=== PATIENT | female | born 1965 | race American Indian/Alaskan Native ===

== ENCOUNTER 2021-02-22 17:16 | Inpatient (IN) | payer OTHER ==
--- NOTE | 2021-02-22 19:48 | Event Note ---
ED Screening Note ED Screening Note: Patient sent by Dr. Anderson, PCP for possible admission Patient has been treated by dermatology for hydronidus suppurativa She has had a wound to the left axilla for the last 2 months She states it has been open and draining purulent material She reports that she has been on Augmentin 3 times but nothing to cover MRSA Dr. Anderson sent patient for IV antibiotics and CT and evaluation for admission This initial assessment/diagnostic orders/clinical plan/treatment(s) is/are subject to change based on patients health status, clinical progression and re- assessment by fellow clinical providers in the ED. Further treatment and workup at subsequent clinical providers discretion. Patient/guardian urged not to elope from the ED as their condition may be serious if not clinically assessed and managed. Initial orders include: Labs, CT
[2021-02-22 20:28] LABS: Basophils # (Auto) 0.1 K/mm3 (0.0-0.1); Basophils % (Auto) 0.8 % (0.0-1.8); Eosinophils # (Auto) 0.7 K/mm3 (0.0-0.4); Eosinophils % (Auto) 5.6 % (0.0-4.3); Hematocrit 35.8 % (30.3-42.9); Hemoglobin 12.1 gm/dl (10.1-14.3); Lymphocytes # (Auto) 3.2 K/mm3 (1.2-5.4); Lymphocytes % (Auto) 25.8 % (13.4-35.0); Mean Corpuscular HGB Conc 34 % (30-34); Mean Corpuscular Volume 89 fl (79-97); Monocytes % (Auto) 8.5 % (0.0-7.3); Platelet Count 364 K/mm3 (140-440); Red Blood Count 4.05 M/mm3 (3.65-5.03)
[2021-02-22 20:39] LABS: Alanine Aminotransferase 21 units/L (7-56); Blood Urea Nitrogen 16 mg/dL (7-17); Calcium 9.5 mg/dL (8.4-10.2); Hemolysis Index 5
[2021-02-22 20:52] LABS: BUN/Creatinine Ratio 27
[2021-02-23] MEDS ORDERED: VANCOMYCIN/NS 1 GM/250 ML 1 GM/250 ML BAG IV ONE (02:29)
--- NOTE | 2021-02-23 02:33 | Emergency Department Report ---
ED General Adult HPI - General Chief complaint: Wound/Laceration Stated complaint: HS/RA LT WOUND ARM Time Seen by Provider: 02/22/21 19:46 Source: patient Mode of arrival: Ambulatory Limitations: No Limitations - History of Present Illness Initial comments: Patient is 55 years old female with history of hypertension. Patient presented to the ER for admission for IV antibiotic and ID consult. Patient has history of left suppurative hidradenitis for approximately 2months with no improvement. Patient stated that she took several rounds of antibiotic. Patient coming with discharge from the left axilla. Patient denied any fever or chills. No nausea or vomiting. - Related Data Allergies Allergy/AdvReac Type Severity Reaction Status Date / Time adhesive tape Allergy Unknown Verified 02/22/21 19:40 Sulfa (Sulfonamide AdvReac Unknown Verified 02/22/21 19:40 Antibiotics) ED Review of Systems ROS: Stated complaint: HS/RA LT WOUND ARM Other details as noted in HPI Comment: All other systems reviewed and negative Constitutional: denies: chills, fever Respiratory: denies: cough, shortness of breath, SOB with exertion Cardiovascular: denies: chest pain Gastrointestinal: denies: abdominal pain, nausea Skin: lesions ED Past Medical Hx - Past Medical History Previous Medical History?: Yes Hx Hypertension: Yes Hx Diabetes: Yes (PRE) ED Physical Exam - General Limitations: No Limitations General appearance: alert, in no apparent distress - Head Head exam: Present: atraumatic, normocephalic, normal inspection - Eye Eye exam: Present: normal appearance - ENT ENT exam: Present: normal exam, normal orophraynx, mucous membranes moist - Neck Neck exam: Present: normal inspection - Respiratory Respiratory exam: Present: normal lung sounds bilaterally - Cardiovascular Cardiovascular Exam: Present: regular rate, normal rhythm, normal heart sounds - GI/Abdominal GI/Abdominal exam: Present: soft. Absent: distended, tenderness, guarding, rebound - Back Exam Back exam: Present: normal inspection. Absent: CVA tenderness (R), CVA tenderness (L) - Neurological Exam Neurological exam: Present: alert, oriented X3, CN II-XII intact - Skin Skin exam: Present: other (Left axilla with multiple opening of greenish pussy discharge with surrounding cellulitis.) ED Course Vital Signs 02/22/21 19:34 Temperature 98.4 F Pulse Rate 85 Respiratory 18 Rate Blood Pressure 169/83 [Left] O2 Sat by Pulse 98 Oximetry ED Medical Decision Making - Lab Data Result diagrams: 02/22/21 20:00 02/22/21 20:00 - Radiology Data Radiology results: report reviewed - Medical Decision Making Patient is 55 years old female with history of hypertension. Patient presented to the ER for admission for IV antibiotic and ID consult. Patient has history of left suppurative hidradenitis for approximately 2months with no improvement. Patient stated that she took several rounds of antibiotic. Patient coming with discharge from the left axilla. Patient denied any fever or chills. No nausea or vomiting. Labs reviewed and showed leukocytosis. CT left upper extremity showed no evidence of abscess. Patient started on vancomycin 1g. I discussed the patient with , he agreed to admit the patient to medical service for further management. Critical care attestation.: If time is entered above; I have spent that time in minutes in the direct care of this critically ill patient, excluding procedure time. ED Disposition Clinical Impression: Abscess of axilla, left Disposition: - OP ADMIT IP TO THIS HOSP Is pt being admited?: Yes Condition: Stable Referrals: PRIMARY CARE, [Primary Care Provider] - 3-5 Days
--- NOTE | 2021-02-23 03:46 | Cat Scan Report ---
CT upper extrem LT w con INDICATION: left axillary infection. TECHNIQUE: All CT scans at this location are performed using the following dose modulation technique: Automated exposure control. CONTRAST: Omnipaque 300, 75 cc COMPARISON: None available. FINDINGS: Soft tissue thickening involving the skin and adjacent soft tissues at the axilla. Mild sof t tissue gas is noted. No mass or fluid collection. The underlying bones are unremarkable. Evaluation of the lungs demonstrate mosaic attenuation. IMPRESSION: 1. Skin/soft tissue infection at the axilla. Negative for mass or fluid collection. 2. Mosaic attenuation of the lungs is most commonly seen in the setting of air trapping. Signer Name: Salomon Sloan MD Signed: 02/23/2021 3:41 AM Workstation Name: [id number]
[2021-02-23] MEDS ORDERED: MAGNESIUM HYDROXIDE (MOM) ORAL LIQD UDC PO PRN (04:10)
[2021-02-23] MEDS ORDERED: ONDANSETRON 4 MG/2 ML INJ IV PRN (04:10)
[2021-02-23] MEDS ORDERED: ACETAMINOPHEN 325 MG TAB PO PRN (04:10)
--- NOTE | 2021-02-23 04:21 | History and Physical Report ---
History of Present Illness Date of examination: 02/23/21 Date of admission: 02/23/2021 Chief complaint: Left Axilla infection History of present illness: 55-year-old -[place] female with known history of hypertension and rheumatoid arthritis presents to the emergency room today with a left axillary abscess. She has followed up with a primary care physician who has encouraged her to report to the hospital for IV antibiotics and possible infectious disease evaluation. She has known history of left axillary hidradenitis for about 2 months. She has been having several rounds of oral antibiotics without any significant improvement. Patient denies any fever or chills, no chest pain or shortness of breath, no nausea vomiting, no abdominal pain, no headache or dizziness. Patient denies any sick contacts or recent travel. Denies any contact with anyone with COVID-19. Work-up in the emergency room today reveals leukocytosis of 12.3 and hypokalemia of 3.0 on the labs. Patient is being admitted with left axilla abscess with failed outpatient oral a ntibiotics. Past History Past Medical History: hypertension Past Surgical History: No surgical history Social history: no significant social history Family history: no significant family history Medications and Allergies Allergies Allergy/AdvReac Type Severity Reaction Status Date / Time adhesive tape Allergy Unknown Verified 02/22/21 19:40 Sulfa (Sulfonamide AdvReac Unknown Verified 02/22/21 19:40 Antibiotics) Active Meds: Active Medications Acetaminophen (Acetaminophen 325 Mg Tab) 650 mg PO Q4H PRN PRN Reason: Pain MILD(1-3)/Fever >100.5/ROMAN Heparin Sodium (Porcine) (Heparin 5,000 Unit/1 Ml Vial) 5,000 unit SUB-Q Q8HR BRODY Sodium Chloride (Nacl 0.9% 1000 Ml) 1,000 mls @ 125 mls/hr IV DIRECT BRODY Magnesium Hydroxide (Magnesium Hydroxide (Mom) Oral Liqd Udc) 30 ml PO Q4H PRN PRN Reason: Constipation Morphine Sulfate (Morphine 2 Mg/1 Ml Inj) 2 mg IV Q4H PRN PRN Reason: Pain, Moderate (4-6) Ondansetron HCl (Ondansetron 4 Mg/2 Ml Inj) 4 mg IV Q8H PRN PRN Reason: Nausea And Vomiting Sodium Chloride (Sodium Chloride 0.9% 10 Ml Flush Syringe) 10 ml IV BID BRODY Sodium Chloride (Sodium Chloride 0.9% 10 Ml Flush Syringe) 10 ml IV PRN PRN PRN Reason: LINE FLUSH Review of Systems Constitutional: no fever, no chills Ears, nose, mouth and throat: no nasal congestion, no sore throat Cardiovascular: no chest pain, no palpitations Respiratory: no cough, no shortness of breath Gastrointestinal: no abdominal pain, no nausea, no vomiting, no diarrhea Genitourinary Female: no flank pain, no dysuria, no hematuria Musculoskeletal: no neck pain, no low back pain Integumentary: no rash, no pruritis Neurological: no headaches, no confusion Psychiatric: no anxiety, no depression Endocrine: no polyphagia, no polydipsia, no polyuria, no nocturia Exam - Constitutional Vitals: Temp Pulse Resp BP Pulse Ox 98.4 F 85 18 169/83 98 02/22/21 19:34 02/22/21 19:34 02/22/21 19:34 02/22/21 19:34 02/22/21 19:34 General appearance: Present: no acute distress, well-nourished - EENT Eyes: Present: PERRL, EOM intact. Absent: scleral icterus ENT: hearing intact, clear oral mucosa, dentition normal - Neck Neck: Present: supple, normal ROM - Respiratory Respiratory effort: normal Respiratory: bilateral: CTA - Cardiovascular Rhythm: regular Heart Sounds: Present: S1 & S2. Absent: gallop, systolic murmur, diastolic murmur, rub, click - Extremities Extremities: no ischemia, pulses intact, pulses symmetrical, No edema, normal temperature, normal color, Full ROM Peripheral Pulses: within normal limits - Abdominal General gastrointestinal: Present: soft, non-tender, non-distended, normal bowel sounds. Absent: mass - Integumentary Integumentary: Present: clear, warm, dry. Absent: rash - Musculoskeletal Musculoskeletal: strength equal bilaterally - Psychiatric Psychiatric: appropriate mood/affect, intact judgment & insight, memory intact, cooperative - Neurologic Neurologic: CNII-XII intact, no focal deficits, moves all extremities - Additional findings Additional findings: Skin: Left axilla with multiple openings of yellow to greenish discharge with surrounding cellulitis. Quite tender to touch. Small open wound in the right axilla with no discharge. No surrounding cellulitis. Tender to touch. Results - Labs CBC & Chem 7: 02/22/21 20:00 02/22/21 20:00 Labs: Abnormal lab results 02/22/21 02/22/21 Range/Units 20:00 20:00 WBC 12.3 H (4.5-11.0) K/mm3 [place] % (Auto) 8.5 H (0.0-7.3) % Eos % (Auto) 5.6 H (0.0-4.3) % Russell # (Auto) 1.0 H (0.0-0.8) K/mm3 Eos # (Auto) 0.7 H (0.0-0.4) K/mm3 Potassium 3.0 L (3.6-5.0) mmol/L Chloride 95.2 L (98-107) mmol/L Glucose 110 H (65-100) mg/dL Total Protein 8.4 H (6.3-8.2) g/dL Assessment and Plan - Patient Problems (1) Abscess of axilla, left Current Visit: Yes Status: Acute Plan to address problem: Patient has failed outpatient oral antibiotics. Will place on IV antibiotics. We will place consult to infectious disease and wound care for evaluation and recommendation. (2) DVT prophylaxis Current Visit: Yes Status: Acute Plan to address problem: Patient placed on subcutaneous heparin. (3) Full code status Current Visit: Yes Status: Acute Plan to address problem: Patient is full code.
[2021-02-23] MEDS ORDERED: POTASSIUM CHLORIDE ER 20 MEQ TAB PO ONE (05:02)
[2021-02-23] MEDS: HEPARIN 5,000 UNIT/1 ML VIAL SUB-Q SCH ×4 (06:18→21:27)
[2021-02-23] MEDS: SODIUM CHLORIDE 0.9% 1000 ML 1,000 ML IV SCH (06:19)
[2021-02-23] MEDS: MORPHINE 2 MG/1 ML INJ IV PRN ×3 (06:35→18:43)
--- NOTE | 2021-02-23 09:33 | Progress Note ---
Assessment and Plan Assessment and plan: Left axilla abscess Hypertension Rheumatoid arthritis Hypokalemia. 02/23/2021. ID and surgery consultation pending. Start Zosyn. Vancomycin given in the emergency room. Potassium was repleted. Follow-up BMP. History Interval history: No new issues overnight. Hospitalist Physical - Constitutional Vitals: Temp Pulse Resp BP Pulse Ox 98.3 F 57 L 17 148/77 99 02/23/21 03:15 02/23/21 05:00 02/23/21 06:35 02/23/21 05:00 02/23/21 05:00 General appearance: Present: no acute distress, well-nourished - EENT Eyes: Present: PERRL, EOM intact ENT: hearing intact, clear oral mucosa, dentition normal - Neck Neck: Present: supple, normal ROM - Respiratory Respiratory effort: normal Respiratory: bilateral: CTA - Cardiovascular Rhythm: regular Heart Sounds: Present: S1 & S2. Absent: gallop, rub - Extremities Extremities: no ischemia, No edema, Full ROM - Abdominal General gastrointestinal: soft, non-tender, non-distended, normal bowel sounds - Integumentary Integumentary: Present: clear, warm, dry - Neurologic Neurologic: CNII-XII intact, moves all extremities Results - Labs CBC & Chem 7: 02/22/21 20:00 02/22/21 20:00 Labs: Laboratory Last Values WBC 12.3 K/mm3 (4.5-11.0) H 02/22/21 20:00 RBC 4.05 M/mm3 (3.65-5.03) 02/22/21 20:00 Hgb 12.1 gm/dl (10.1-14.3) 02/22/21 20:00 Hct 35.8 % (30.3-42.9) 02/22/21 20:00 MCV 89 fl (79-97) 02/22/21 20:00 MCH 30 pg (28-32) 02/22/21 20:00 MCHC 34 % (30-34) 02/22/21 20:00 RDW 14.0 % (13.2-15.2) 02/22/21 20:00 Plt Count 364 K/mm3 (140-440) 02/22/21 20:00 Lymph % (Auto) 25.8 % (13.4-35.0) 02/22/21 20:00 [place] % (Auto) 8.5 % (0.0-7.3) H 02/22/21 20:00 Eos % (Auto) 5.6 % (0.0-4.3) H 02/22/21 20:00 Baso % (Auto) 0.8 % (0.0-1.8) 02/22/21 20:00 Lymph # (Auto) 3.2 K/mm3 (1.2-5.4) 02/22/21 20:00 [place] # (Auto) 1.0 K/mm3 (0.0-0.8) H 02/22/21 20:00 Eos # (Auto) 0.7 K/mm3 (0.0-0.4) H 02/22/21 20:00 Baso # (Auto) 0.1 K/mm3 (0.0-0.1) 02/22/21 20:00 Seg Neutrophils % 59.3 % (40.0-70.0) 02/22/21 20:00 Seg Neutrophils # 7.3 K/mm3 (1.8-7.7) 02/22/21 20:00 Sodium 139 mmol/L (137-145) 02/22/21 20:00 Potassium 3.0 mmol/L (3.6-5.0) L 02/22/21 20:00 Chloride 95.2 mmol/L (98-107) L 02/22/21 20:00 Carbon Dioxide 30 mmol/L (22-30) 02/22/21 20:00 Anion Gap 17 mmol/L 02/22/21 20:00 BUN 16 mg/dL (7-17) 02/22/21 20:00 Creatinine 0.6 mg/dL (0.6-1.2) 02/22/21 20:00 Estimated GFR > 60 ml/min 02/22/21 20:00 BUN/Creatinine Ratio 27 % 02/22/21 20:00 Glucose 110 mg/dL (65-100) H 02/22/21 20:00 Lactic Acid 1.30 mmol/L (0.7-2.0) 02/22/21 20:00 Calcium 9.5 mg/dL (8.4-10.2) 02/22/21 20:00 Total Bilirubin 0.20 mg/dL (0.1-1.2) 02/22/21 20:00 AST 18 units/L (5-40) 02/22/21 20:00 ALT 21 units/L (7-56) 02/22/21 20:00 Alkaline Phosphatase 64 units/L (35-129) 02/22/21 20:00 Total Protein 8.4 g/dL (6.3-8.2) H 02/22/21 20:00 Albumin 4.0 g/dL (3.9-5) 02/22/21 20:00 Albumin/Globulin Ratio 0.9 % 02/22/21 20:00 Microbiology: Microbiology 02/22/21 20:05 Peripheral/Venous Blood Culture - Preliminary Culture in Progress 02/22/21 20:00 Peripheral/Venous Blood Culture - Preliminary Culture in Progress Active Medications - Current Medications Current Medications: Generic Name Dose Route Start Last Admin Trade Name Freq PRN Reason Stop Dose Admin Acetaminophen 650 mg 02/23/21 04:10 Acetaminophen 325 Mg Tab PO Q4H PRN Pain MILD(1-3)/Fever >100.5/ROMAN Heparin Sodium (Porcine) 5,000 unit 02/23/21 06:00 02/23/21 06:18 Heparin 5,000 Unit/1 Ml Vial SUB-Q 5,000 unit Q8HR BRODY Administration Sodium Chloride 1,000 mls @ 125 mls/hr 02/23/21 04:15 02/23/21 06:19 Nacl 0.9% 1000 Ml IV 125 mls/hr DIRECT BRODY Administration Magnesium Hydroxide 30 ml 02/23/21 04:10 Magnesium Hydroxide (Mom) Oral Liqd Udc PO Q4H PRN Constipation Morphine Sulfate 2 mg 02/23/21 04:10 02/23/21 06:35 Morphine 2 Mg/1 Ml Inj IV 2 mg Q4H PRN Administration Pain, Moderate (4-6) Ondansetron HCl 4 mg 02/23/21 04:10 Ondansetron 4 Mg/2 Ml Inj IV Q8H PRN Nausea And Vomiting Sodium Chloride 10 ml 02/23/21 10:00 Sodium Chloride 0.9% 10 Ml Flush Syringe IV BID BRODY Sodium Chloride 10 ml 02/23/21 04:10 Sodium Chloride 0.9% 10 Ml Flush Syringe IV PRN PRN LINE FLUSH
[2021-02-23] MEDS ORDERED: PIPERACIL/TAZOBACTA 4.5/NS 100 4.5 GM/100 ML VIAL IV SCH (12:00)
--- NOTE | 2021-02-23 15:18 | Consultation ---
History of Present Illness - Reason for Consult Consult date: 02/23/21 left axilla wound infection fell outpatient abx Requesting physician: BOLA JEFFERSON - History of Present Illness 55-year-old female with history of hypertension, rheumatoid arthritis and hidradenitis suppurativa of bilateral axilla admitted on 02/22/2021 due to nonhealing left axilla wound. Patient has history of recurrent axilla cysts. However, she developed left axillary wound 3 months ago and has not improved. She still 7 and a biopsy was taken which was positive for pyoderma gangrenosum. She has received recent oral courses of antibiotic and without any improvement. She has history of right fractured ankle status post repair and complains of chronic right ankle edema. She denies any fever, chills, cough, nausea, vomiting. On arrival, temperature 98.4, HR 85, RR 18, O2 sat 98%, blood pressure 138/83. Initial WBC 12.3. Eosinophils 5.6%. CT shows soft tissue thickening and gas, no abscess or mass. Review of Systems: positive in bold print General: fever, chills, malaise Cutaneous: rash, pruritus Head: headaches or injury Eyes: changes in vision, eye pain, double vision Ears: ear pain, ear discharge, ringing or hearing loss Nose: nose bleeding, stuffiness Mouth & throat: bleeding gums, horseness, no dental problems, or swollen glands Neck: no pain, node enlargement/lumps, tyroid enlargement or tenderness Respiratory: SOB, cough, CABRERA, wheezing, sputum, hemoptysis, pleuritic chest pain Cardiovascular: chest pain, leg edema, cyanosis, CABRERA, orthopnea Musculoskeletal: Left axilla pain and wound Gastrointestinal: nausea, vomiting, hematemesis, diarrhea, constipation, melena, bright red blood in stools, fecal incontinence, jaundice Genitourinary/Reproductive: frequent urination, dysuria, hematuria, incontinence Neurogical: seizures, headaches, weakness, paresthesias, loss of speech or vision; memory loss, vertigo, tremors, numbness Psychiatric: stable mood; excessive anxiety, sadness or moodiness Past History Past Medical History: hypertension Past Surgical History: No surgical history Social history: no significant social history Family history: no significant family history Medications and Allergies Allergies Allergy/AdvReac Type Severity Reaction Status Date / Time adhesive tape Allergy Unknown Verified 02/22/21 19:40 Sulfa (Sulfonamide AdvReac Unknown Verified 02/22/21 19:40 Antibiotics) Home Medications Medication Instructions Recorded Confirmed Last Taken Type hydroCHLOROthiazide [HCTZ] 25 mg PO QDAY 02/23/21 02/23/21 02/22/21 10:00 History Active Meds: Active Medications Acetaminophen (Acetaminophen 325 Mg Tab) 650 mg PO Q4H PRN PRN Reason: Pain MILD(1-3)/Fever >100.5/ROMAN Heparin Sodium (Porcine) (Heparin 5,000 Unit/1 Ml Vial) 5,000 unit SUB-Q Q8HR BRODY Last Admin: 02/23/21 14:04 Dose: 5,000 unit Documented by: Sodium Chloride (Nacl 0.9% 1000 Ml) 1,000 mls @ 125 mls/hr IV DIRECT BRODY Last Admin: 02/23/21 06:19 Dose: 125 mls/hr Documented by: Piperacillin Sod/Tazobactam Sod (Zosyn/Ns 4.5gm/100ml) 4.5 gm in 100 mls @ 200 mls/hr IV Q8H BRODY; Protocol Last Admin: 02/23/21 14:04 Dose: 200 mls/hr Documented by: Magnesium Hydroxide (Magnesium Hydroxide (Mom) Oral Liqd Udc) 30 ml PO Q4H PRN PRN Reason: Constipation Morphine Sulfate (Morphine 2 Mg/1 Ml Inj) 2 mg IV Q4H PRN PRN Reason: Pain, Moderate (4-6) Last Admin: 02/23/21 13:58 Dose: 2 mg Documented by: Ondansetron HCl (Ondansetron 4 Mg/2 Ml Inj) 4 mg IV Q8H PRN PRN Reason: Nausea And Vomiting Sodium Chloride (Sodium Chloride 0.9% 10 Ml Flush Syringe) 10 ml IV BID BRODY Last Admin: 02/23/21 14:04 Dose: 10 ml Documented by: Sodium Chloride (Sodium Chloride 0.9% 10 Ml Flush Syringe) 10 ml IV PRN PRN PRN Reason: LINE FLUSH Physical Examination - Physical Exam Narrative exam: General appearance: Alert in NAD pleasant Eyes: anicteric sclerae, moist conjunctivae; no lid-lag; PERRLA HENT: Normocephalic, Atraumatic; normal external ears, nares open, oropharynx clear Neck: supple, tracheal midline, no JVD Lungs: CTA, with normal respiratory effort and no intercostal retractions CV: RRR no murmur Abdomen: Soft, non-tender; no masses or hepatosplenomegaly Extremities: no edema, no cyanosis Skin: +left axilla wound very tender no purulence Psych: no agitated Neuro: alert and oriented x 3. Moving all extermities - Constitutional Vitals: Vital Signs Temp Pulse Resp BP Pulse Ox 97.8 F 71 18 173/79 99 02/23/21 12:35 02/23/21 12:35 02/23/21 12:35 02/23/21 12:35 02/23/21 12:35 Temperature -Last 24 Hours Temperature 97.8 F Temperature 98.3 F Temperature 98.4 F Results - Labs CBC & Chem 7: 02/22/21 20:00 02/22/21 20:00 Labs: Abnormal lab results 02/22/21 02/22/21 Range/Units 20:00 20:00 WBC 12.3 H (4.5-11.0) K/mm3 [place] % (Auto) 8.5 H (0.0-7.3) % Eos % (Auto) 5.6 H (0.0-4.3) % [place] # (Auto) 1.0 H (0.0-0.8) K/mm3 Eos # (Auto) 0.7 H (0.0-0.4) K/mm3 Potassium 3.0 L (3.6-5.0) mmol/L Chloride 95.2 L (98-107) mmol/L Glucose 110 H (65-100) mg/dL Total Protein 8.4 H (6.3-8.2) g/dL Assessment and Plan Cultures: Blood culture no growth today Assessment: 55-year-old female with history of hypertension, rheumatoid arthritis and hidradenitis suppurativa of bilateral axilla admitted on 02/22/2021 due to non-healing left axilla wound for 3 months: #Leukocytosis, likely secondary to possible left axillary wound cellulitis #Left axillary pyoderma gangrenosum wound with cellulitis on top of hidradenitis suppurativa: Patient with biopsy-proven pyoderma gangrenosum of the left axilla done in December 2020. She sees dermatology. Pyoderma can occur in association with rheumatoid arthritis. Recommendations: -Wound care consult intended to optimize the environment for wound healing, maintain a moist wound environment is preferred. -Due to potential for pathergy (worsening pyoderma at the site of injury), unnecessary injury should be avoided, surgical procedure should be avoided -Stop zosyn -Start Minocycline 100 mg po bid for 3 weeks -Start prednisone 40 mg po daily 2-3 weeks then taper -Follow-up with dermatology to consider aggressive immunomodulatory therapy including infliximab -ID clinic f/u in 2 weeks -F/u wound and blood culture Will follow. Kelsie Griffin MD Infectious Diseases Settlement Technician [facility] ([facility] M [phone] O [phone]
[2021-02-23 16:07] LABS: Blood Urea Nitrogen 12 mg/dL (7-17); Calcium 8.6 mg/dL (8.4-10.2); Hemolysis Index 36
[2021-02-23 16:25] LABS: BUN/Creatinine Ratio 17
[2021-02-23] MEDS: predniSONE 20 MG TAB PO SCH (18:47)
[2021-02-23] MEDS: DOXYCYCLINE 100 MG CAP PO SCH ×2 (18:58→21:27)
[2021-02-24] MEDS: hydroCHLOROthiazide 25 MG TAB PO SCH ×2 (02:40→09:36)
[2021-02-24] MEDS: SODIUM CHLORIDE 0.9% 1000 ML 1,000 ML IV SCH (03:48)
[2021-02-24 05:17] LABS: Basophils # (Auto) 0.1 K/mm3 (0.0-0.1); Basophils % (Auto) 0.7 % (0.0-1.8); Eosinophils % (Auto) 0.3 % (0.0-4.3); Hematocrit 38.4 % (30.3-42.9); Hemoglobin 12.5 gm/dl (10.1-14.3); Lymphocytes # (Auto) 1.4 K/mm3 (1.2-5.4); Lymphocytes % (Auto) 12.3 % (13.4-35.0); Mean Corpuscular HGB Conc 33 % (30-34); Mean Corpuscular Volume 89 fl (79-97); Monocytes # (Auto) 0.2 K/mm3 (0.0-0.8); Monocytes % (Auto) 1.4 % (0.0-7.3); Platelet Count 355 K/mm3 (140-440); Red Blood Count 4.32 M/mm3 (3.65-5.03); Red Cell Distribution Width 13.9 % (13.2-15.2)
[2021-02-24] MEDS: HEPARIN 5,000 UNIT/1 ML VIAL SUB-Q SCH (05:23)
[2021-02-24 05:25] LABS: INR 0.99 (0.87-1.13)
[2021-02-24 05:35] LABS: BUN/Creatinine Ratio 20; Blood Urea Nitrogen 10 mg/dL (7-17); Calcium 9.1 mg/dL (8.4-10.2); Hemolysis Index 57
[2021-02-24] MEDS: predniSONE 20 MG TAB PO SCH (09:36)
[2021-02-24] MEDS: MORPHINE 2 MG/1 ML INJ IV PRN (09:36)
[2021-02-24] MEDS: DOXYCYCLINE 100 MG CAP PO SCH (09:36)
--- NOTE | 2021-02-24 09:42 | Consultation ---
History of Present Illness Consult date: 02/24/21 Chief complaint: Left axillary ulceration - History of present illness History of present illness: 55 yo female with a chronic left axillary ulcer. This was biopsied on 01/21/21 and came back c/w pyoderma gangrenosum. Past History Past Medical History: hypertension Past Surgical History: No surgical history Social history: no significant social history Family history: no significant family history Medications and Allergies Allergies Allergy/AdvReac Type Severity Reaction Status Date / Time adhesive tape Allergy Unknown Verified 02/22/21 19:40 Sulfa (Sulfonamide AdvReac Unknown Verified 02/22/21 19:40 Antibiotics) Home Medications Medication Instructions Recorded Confirmed Last Taken Type hydroCHLOROthiazide [HCTZ] 25 mg PO QDAY 02/23/21 02/23/21 02/22/21 10:00 History Active Meds: Active Medications Acetaminophen (Acetaminophen 325 Mg Tab) 650 mg PO Q4H PRN PRN Reason: Pain MILD(1-3)/Fever >100.5/ROMAN Doxycycline Hyclate (Doxycycline 100 Mg Cap) 100 mg PO BID [facility]; Protocol Last Admin: 02/24/21 09:36 Dose: 100 mg Documented by: Heparin Sodium (Porcine) (Heparin 5,000 Unit/1 Ml Vial) 5,000 unit SUB-Q Q8HR [facility] Last Admin: 02/24/21 05:23 Dose: 5,000 unit Documented by: Hydrochlorothiazide (Hydrochlorothiazide 25 Mg Tab) 25 mg PO QDAY [facility] Last Admin: 02/24/21 09:36 Dose: Not Given Documented by: Sodium Chloride (Nacl 0.9% 1000 Ml) 1,000 mls @ 125 mls/hr IV DIRECT [facility] Last Admin: 02/24/21 03:48 Dose: 125 mls/hr Documented by: Magnesium Hydroxide (Magnesium Hydroxide (Mom) Oral Liqd Udc) 30 ml PO Q4H PRN PRN Reason: Constipation Morphine Sulfate (Morphine 2 Mg/1 Ml Inj) 2 mg IV Q4H PRN PRN Reason: Pain, Moderate (4-6) Last Admin: 02/24/21 09:36 Dose: 2 mg Documented by: Ondansetron HCl (Ondansetron 4 Mg/2 Ml Inj) 4 mg IV Q8H PRN PRN Reason: Nausea And Vomiting Prednisone (Prednisone 20 Mg Tab) 40 mg PO QDAY [facility] Last Admin: 02/24/21 09:36 Dose: 40 mg Documented by: Sodium Chloride (Sodium Chloride 0.9% 10 Ml Flush Syringe) 10 ml IV BID [facility] Last Admin: 02/24/21 09:37 Dose: 10 ml Documented by: Sodium Chloride (Sodium Chloride 0.9% 10 Ml Flush Syringe) 10 ml IV PRN PRN PRN Reason: LINE FLUSH Review of Systems All systems: negative (none) Exam Vital Signs Temp Pulse Resp BP Pulse Ox 98.4 F 85 18 169/83 98 02/22/21 19:34 02/22/21 19:34 02/22/21 19:34 02/22/21 19:34 02/22/21 19:34 - General physical appearance Positive: well developed, well nourished, no distress - Eyes Positive: PERRL, normal occular movement - ENT Positive: normal pinna, normal nares, normal mucosa, no hearing loss, no congestion - Neck Positive: no masses, no bruits, trachea midline, no venous distension - Respiratory Positive: normal expansion, normal respiratory effort, clear to auscultation - Cardiovascular Rhythm: regular Heart Sounds: Present: S1 & S2. Absent: rub, click - Extremities Extremities: no ischemia, pulses symmetrical, No edema - Breasts Breasts: normal, no mass, no skin changes - Abdomen Abdomen: Present: soft, bowel sounds normal. Absent: tender, distended Hernia: none - Genitourinary Male Genitourinary: normal Female Genitourinary: normal - Integumentary no rash, no growths, no abnormal pigmentation, other (Left axillary ulcer is c/w pyoderma gangrenosum. See Wound Care nurse notes for photos and measurements. There is no evidence of underlying abscess formation.) - Neurologic Neurologic: alert and oriented to time, place and person, motor strength and sensation are grossly intact - Musculoskeletal normal gait, normal posture - Psychiatric Psychiatric: appropriate mood/affect, intact judgment & insight Results - Labs 02/24/21 04:36 02/24/21 04:36 Abnormal lab results 02/23/21 02/24/21 02/24/21 Range/Units 15:22 04:36 04:36 WBC 11.4 H (4.5-11.0) K/mm3 Lymph % (Auto) 12.3 L (13.4-35.0) % Seg Neutrophils % 85.3 H (40.0-70.0) % Seg Neutrophils # 9.7 H (1.8-7.7) K/mm3 Creatinine 0.5 L (0.6-1.2) mg/dL Glucose 129 H (65-100) mg/dL C-Reactive Protein 4.10 H (0.00-1.30) mg/dL Diabetes panel 02/23/21 02/24/21 Range/Units 15:01 04:36 Sodium 141 139 (137-145) mmol/L Potassium 3.9 D 4.1 (3.6-5.0) mmol/L Chloride 101.9 101.2 (98-107) mmol/L Carbon Dioxide 27 25 (22-30) mmol/L BUN 12 10 (7-17) mg/dL Creatinine 0.7 0.5 L (0.6-1.2) mg/dL Glucose 86 129 H (65-100) mg/dL Calcium 8.6 9.1 (8.4-10.2) mg/dL Calcium panel 02/23/21 02/24/21 Range/Units 15:01 04:36 Calcium 8.6 9.1 (8.4-10.2) mg/dL Pituitary panel 02/23/21 02/24/21 Range/Units 15:01 04:36 Sodium 141 139 (137-145) mmol/L Potassium 3.9 D 4.1 (3.6-5.0) mmol/L Chloride 101.9 101.2 (98-107) mmol/L Carbon Dioxide 27 25 (22-30) mmol/L BUN 12 10 (7-17) mg/dL Creatinine 0.7 0.5 L (0.6-1.2) mg/dL Glucose 86 129 H (65-100) mg/dL Calcium 8.6 9.1 (8.4-10.2) mg/dL Adrenal panel 02/23/21 02/24/21 Range/Units 15:01 04:36 Sodium 141 139 (137-145) mmol/L Potassium 3.9 D 4.1 (3.6-5.0) mmol/L Chloride 101.9 101.2 (98-107) mmol/L Carbon Dioxide 27 25 (22-30) mmol/L BUN 12 10 (7-17) mg/dL Creatinine 0.7 0.5 L (0.6-1.2) mg/dL Glucose 86 129 H (65-100) mg/dL Calcium 8.6 9.1 (8.4-10.2) mg/dL - Imaging CT scan - chest: report reviewed Assessment and Plan - Patient Problems (1) Pyoderma gangrenosum Current Visit: Yes Status: Acute Plan to address problem: 1) No surgical intervention is indicated. 2) Follow ID recommendations and outpt f/u with dermatology. 3) I will sign off.
--- NOTE | 2021-02-24 11:28 | Discharge Summary ---
Providers - Providers Date of Admission: 02/23/21 04:05 Date of discharge: 02/24/21 Attending physician: SANTO BERMUDEZ 02/23/21 04:10 Consult to Physician [CONS] Routine Comment: Consulting Provider: BHAVYA SANCHEZ Physician Instructions: Reason For Exam: Left axillary Cellulitis-FAILED OUTPX ANTIBIOTICS 02/23/21 05:00 Consult to Wound/ET Nurse [CONS] Routine Reason For Exam: wound eval-left axilla wound 02/23/21 09:26 Consult to Physician [CONS] Routine Comment: Consulting Provider: RADHA OLIVAS Physician Instructions: Reason For Exam: axilla wound, abscess Primary care physician: [employer] Hospitalization Condition: Stable Hospital course: 55-year-old female with history of hypertension, rheumatoid arthritis and hidradenitis suppurativa of bilateral axilla admitted on 02/22/2021 due to nonhealing left axilla wound. Patient has history of recurrent axilla cysts. However, she developed left axillary wound 3 months ago and has not improved. She still 7 and a biopsy was taken which was positive for pyoderma gangrenosum. She has received recent oral courses of antibiotic and without any improvement. She has history of right fractured ankle status post repair and complains of chronic right ankle edema. She denies any fever, chills, cough, nausea, vomiting. On arrival, temperature 98.4, HR 85, RR 18, O2 sat 98%, blood pressure 138/83. Initial WBC 12.3. Eosinophils 5.6%. CT shows soft tissue thickening and gas, no abscess or mass. Patient was admitted with diagnosis of left axillary pyoderma gangrenosum hypertension, rheumatoid arthritis and hidradenitis suppurativa of bilateral axilla ID evaluated the patient and recommended -Wound care consult intended to optimize the environment for wound healing, maintain a moist wound environment is preferred. -Due to potential for pathergy (worsening pyoderma at the site of injury), unnecessary injury should be avoided, surgical procedure should be avoided -Minocyclin 100 mg p.o. twice daily for 1 month -Prednisone 40 mg p.o. daily for 3 weeks then taper -Follow-up with dermatology to consider aggressive immunomodulatory therapy including infliximab -ID clinic f/u in 2 weeks Dedicated discharge time 35 minutes Disposition: TO HOME OR SELFCARE Final Discharge Diagnosis (Prints w/discharge instructions): Pyoderma gangrenosum, hypertension, rheumatoid arthritis and hidradenitis suppurativa of bilateral axilla Core Measure Documentation - Palliative Care Palliative Care/ Comfort Measures: Not Applicable - Core Measures Any of the following diagnoses?: none Exam - Constitutional Vitals: Temp Pulse Resp BP Pulse Ox 98.3 F 56 L 20 155/71 98 02/24/21 05:04 02/24/21 05:04 02/24/21 05:04 02/24/21 05:04 02/24/21 05:04 General appearance: Present: no acute distress, well-nourished - EENT Eyes: Present: PERRL ENT: hearing intact, clear oral mucosa - Neck Neck: Present: supple, normal ROM - Respiratory Respiratory effort: normal Respiratory: bilateral: CTA - Cardiovascular Heart Sounds: Present: S1 & S2. Absent: rub, click - Extremities Extremities: pulses symmetrical, No edema Peripheral Pulses: within normal limits - Abdominal General gastrointestinal: Present: soft, non-tender, non-distended, normal bowel sounds Female genitourinary: Present: normal - Integumentary Integumentary: Present: clear, warm, dry - Musculoskeletal Musculoskeletal: gait normal, strength equal bilaterally - Psychiatric Psychiatric: appropriate mood/affect, intact judgment & insight - Neurologic Neurologic: CNII-XII intact, moves all extremities Plan Activity: advance as tolerated Weight Bearing Status: Weight Bear as Tolerated Diet: regular Follow up with: PRIMARY CARE, [Primary Care Provider] - 3-5 Days Prescriptions: predniSONE [Deltasone] 20 mg PO QDAY #48 tab Minocycline (Nf) [Minocin (Nf)] 100 mg PO Q12H #60 capsule
--- NOTE | 2021-02-24 13:18 | Progress Note ---
Assessment and Plan Cultures: Blood culture no growth today Wound culture no growth today Assessment: 55-year-old female with history of hypertension, rheumatoid arthritis and hidradenitis suppurativa of bilateral axilla admitted on 02/22/2021 due to non-healing left axilla wound for 3 months: #Leukocytosis: better, likely secondary to possible left axillary wound cellulitis #Left axillary pyoderma gangrenosum wound with cellulitis on top of hidradenitis suppurativa: better. Patient with biopsy-proven pyoderma gangrenosum of the left axilla done in December 2020. She sees dermatology. Pyoderma can occur in association with rheumatoid arthritis. Recommendations: -Wound care intended to optimize the environment for wound healing, maintain a moist wound environment is preferred. -Due to potential for pathergy (worsening pyoderma at the site of injury), unnecessary injury should be avoided, surgical procedure should be avoided -Ok to discharge on Minocycline 100 mg po bid for 4 weeks (educated about side effects) -Okay to discharge on prednisone 40 mg po daily 2-3 weeks then taper, educated a bout side effects -Follow-up with dermatology to consider aggressive immunomodulatory therapy including infliximab -ID clinic f/u in 2 weeks -F/u wound and blood culture Discussed with attending Will follow. Kelsie Griffin MD Infectious Diseases [employer] [facility] M [phone] O [phone] Subjective Date of service: 02/24/21 Principal diagnosis: Nonhealing left axillary wound Interval history: Patient reported feeling better. Left axillary wound pain is improved. No fever. Objective - Exam Narrative Exam: General appearance: Alert in NAD pleasant Eyes: anicteric sclerae, moist conjunctivae; no lid-lag; PERRLA HENT: Normocephalic, Atraumatic; normal external ears, nares open, oropharynx clear Neck: supple, tracheal midline, no JVD Lungs: CTA, with normal respiratory effort and no intercostal retractions CV: RRR no murmur Abdomen: Soft, non-tender; no masses or hepatosplenomegaly Extremities: no edema, no cyanosis Skin: +left axilla wound tender no purulence Psych: no agitated Neuro: alert and oriented x 3. Moving all extermities - Constitutional Vitals: Vital Signs Temp Pulse Resp BP Pulse Ox 98.3 F 56 L 20 155/71 98 02/24/21 05:04 02/24/21 05:04 02/24/21 05:04 02/24/21 05:04 02/24/21 05:04 Temperature -Last 24 Hours Temperature 98.3 F Temperature 98.6 F - Labs CBC & Chem 7: 02/24/21 04:36 02/24/21 04:36 Labs: Abnormal lab results 02/23/21 02/24/21 02/24/21 Range/Units 15:22 04:36 04:36 WBC 11.4 H (4.5-11.0) K/mm3 Lymph % (Auto) 12.3 L (13.4-35.0) % Seg Neutrophils % 85.3 H (40.0-70.0) % Seg Neutrophils # 9.7 H (1.8-7.7) K/mm3 Creatinine 0.5 L (0.6-1.2) mg/dL Glucose 129 H (65-100) mg/dL C-Reactive Protein 4.10 H (0.00-1.30) mg/dL
[2021-02-24 14:12] VITALS: BP 187/98
--- NOTE | 2021-03-02 17:20 | Electrocardiograph Report ---
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
== END 2021-02-24 15:09 | disposition home health service (06) | DRG 603 ==
LOC: ED 17:16 → 3A 02-23 04:05
PROVIDERS: ADMIT Internal Medicine Geriatric Medicine; ATTEND Hospitalist
DX: L02.412 Cutaneous abscess of left axilla (principal); L88 Pyoderma gangrenosum; M06.9 Rheumatoid arthritis, unspecified; I10 Essential (primary) hypertension; L73.2 Hidradenitis suppurativa; E87.6 Hypokalemia; E11.9 Type 2 diabetes mellitus without complications; Z88.2 Allergy status to sulfonamides; Z91.048 Other nonmedicinal substance allergy status
CPT/HCPCS: 36415; 80048; 80053; 82140; 85025; 85610; 86140; 86160; 87040; 87116; 93005; 96365; G0378; J1644; J2270; J2543; J3370; J7030; J7512; Q9967

== ENCOUNTER 2022-01-10 10:46 | Outpatient (CLI) | payer OTHER ==
--- NOTE | 2022-01-10 12:27 | XRay Report ---
LUMBAR SPINE 3 VIEWS INDICATION / CLINICAL INFORMATION: BACK PAIN. COMPARISON: None available. FINDINGS: VERTEBRAE: No acute fracture. No significant malalignment. DISC SPACES / FACET JOINTS:Mild scattered degenerative disc disease throughout the lumbar spine. PARASPINAL SOFT TISSUES:No significant abnormality. ADDITIONAL FINDINGS: None. Signer Name: Pancho Craft DO Signed: 01/10/2022 12:22 PM Workstation Name: [id number]
--- NOTE | 2022-01-10 13:16 | XRay Report ---
Left knee 2 views INDICATION: Knee pain FINDINGS: There is tricompartmental degenerative osteoarthrosis. Joint space narrowing with marginal osteophytes throughout. Signer Name: Adriano Deng MD Signed: 01/10/2022 1:11 PM Workstation Name: [id number]
--- NOTE | 2022-01-10 13:17 | XRay Report ---
RIGHT ANKLE 2 VIEWS INDICATION / CLINICAL INFORMATION: SWELLING IN LEFT ANKLE COMPARISON: None available. FINDINGS: BONES / JOINT(S): No acute fracture or subluxation. Distal fibular and distal tibial hardware project s in expected position across healed fractures. There is a corticated 1.1 cm ossific density adjacent to the tip of the medial malleolus. This could be a chronic ununited fracture fragment or heterotopi c ossification. Calcaneal enthesopathy is noted. There is mild posttraumatic osteoarthrosis at the an kle. SOFT TISSUES: No significant abnormality. ADDITIONAL FINDINGS: None. IMPRESSION: No acute findings. Signer Name: Raymundo Jacobs MD Signed: 01/10/2022 1:12 PM Workstation Name: [employer]
--- NOTE | 2022-01-10 13:18 | XRay Report ---
BILATERAL SHOULDERS 6 TOTAL VIEWS INDICATION / CLINICAL INFORMATION: BILATERAL SHOULDER PAIN COMPARISON: None available. FINDINGS: BONES / JOINT(S): No acute fracture or subluxation. There is mild AC degenerative change bilaterally. SOFT TISSUES: No significant abnormality. ADDITIONAL FINDINGS: None. IMPRESSION: No acute findings. Signer Name: Raymundo Jacobs MD Signed: 01/10/2022 1:13 PM Workstation Name: [email or web address]
== END 2022-01-10 10:47 | disposition home or self-care (01) ==
LOC: XRAY 10:46
PROVIDERS: ATTEND Internal Medicine
DX: M19.012 Primary osteoarthritis, left shoulder (principal); M19.011 Primary osteoarthritis, right shoulder; M17.12 Unilateral primary osteoarthritis, left knee; M25.762 Osteophyte, left knee; M51.36 Other intervertebral disc degeneration, lumbar region; M19.071 Primary osteoarthritis, right ankle and foot
CPT/HCPCS: 72100